=== PATIENT | female | born 1975 | race Caucasian/White ===

== ENCOUNTER 2017-09-07 02:02 | Emergency (ER) | payer OTHER ==
[~2017-09-07] VITALS: Ht 157.5 cm; Wt 68.0 kg
[~2017-09-07 02:02] MED LIST: ABAC300; ACET325 PO; ALBU90OI INH; ALBU90OI6 INH; ALBU90OI61 INH; ALPR.25 PO; ASPI81CH PO; ATOR80 PO; AZIT250 PO; Albuterol17 G1 INH; BENADRYL 50 MG; BENTYL10 MG PO; BUSP10 PO; BUSP5 PO; CEPH500 PO; CIPDEXSU OT; CLIN150 PO; CLIN300; CLIN300 PO; CLOT1TC TOP; CODACE30 PO; CRANBERRY PILLS; CYCL10 PO; Cleocin HCl150 MG PO; DEXT40GEL PO; DIAZ5 PO; DIPH50 PO; ERGO400 PO; Erythromycin500 M1 PO; FISH1000 PO; FLUSAL1005 INH; Flomax0.4 MG PO; HYDACE10B PO; HYDACE5 PO; HYDCHL12.5 PO; HYDPAM25; HYDPAM25 PO; HYDR1TAB94 PO; Hair, Skin & N1 EACH PO; Hydrochloroth12.5 MG PO; IBUP800 PO; ISODIN10 PO; Lisinopril2.5 MG; META800 PO; METO10 PO; METO25 PO; METO25ER PO; METR500 PO; MOTION RELIEF25 MG PO; Monodox100 MG PO; NAPR500ERA PO; NAPR550 PO; NAPROXEN; NICO14TP TOP; Nitroglycerin0.4 MG SL; Norco 5-325 Ta1 EACH PO; ONDA4ODT MM; OXYACE5T; OXYACE5T PO; PANT20 PO; PANT40 PO; PARO10; PHENA200 PO; POTA10T PO; POTCHL10ER; POTCHL10ER PO; PRED20 PO; PRODEXEL PO; PROM12.5S PR; PROM25 PO; Percocet 10-321 EACH PO; Percocet 5-3251 EACH PO; Prednisone20 MG PO; RXCLIN PO; RXHYD5325 PO; RXNAPNA550 PO; RXTRAM50 PO; SULTRIDS PO; TICA90TA; TRAM50 PO; Ultram50 MG PO; VARE1 PO; Ventolin Soln3 ML INH; Ventolin/Prove6.7 GM INH; Zofran Odt8 MG SL; Zofran8 MG PO
[2017-09-07 02:56] LABS: BASOPHILS ABSOLUTE AUTO 0.05 K/mm3 (0.00-0.23); BASOPHILS PERCENT AUTO 1 % (0-2); EOSINOPHILS ABSOLUTE AUTO 0.27 K/mm3 (0.00-0.68); EOSINOPHILS PERCENT AUTO 3 % (0-6); Hematocrit 32.1 % (33.0-51.0); Hemoglobin 10.3 g/dL (11.5-16.0); IMMATURE GRAN ABSOLUTE AUTO 0.05 K/mm3 (0.00-0.10); IMMATURE GRAN PERCENT AUTO 1 % (0-1); LYMPHOCYTES PERCENT AUTO 23 % (21-46); MONOCYTES ABSOLUTE AUTO 0.64 K/mm3 (0.16-1.47); MONOCYTES PERCENT AUTO 6 % (4-13); Mean Corpuscular HGB 26.2 pg (26.0-34.0); Mean Corpuscular HGB Conc 32.1 g/dL (31.5-36.5); Mean Corpuscular Volume 82 fL (80-100); Mean Platelet Volume 10.3 fL (9.1-12.4); NEUTROPHILS ABSOLUTE AUTO 6.78 K/mm3 (1.96-9.15); NEUTROPHILS PERCENT AUTO 67 % (41-73); Platelet Count 316 K/mm3 (150-400); RDW Standard Deviation 44.5 fL (35.1-46.3); Red Blood Cell Count 3.93 M/mm3 (3.80-5.20); White Blood Cell Count 10.09 K/mm3 (4.00-11.30)
[2017-09-07 03:19] LABS: Alanine Aminotransfer (ALT/SGP 23 U/L (12-78); Albumin, Blood 3.2 g/dL (3.4-5.0); Albumin/Globulin Ratio 0.9 (0.8-1.8); Alk Phos 106 U/L (50-136); Anion Gap 8 mmol/L (6-16); Aspartate Aminotrans (AST/SGOT 21 U/L (12-37); Bilirubin, Total 0.3 mg/dL (0.1-1.0); Blood Urea Nitrogen 19 mg/dL (8-24); CO2, Blood 26 mmol/L (21-32); Chloride, Blood 106 mmol/L (98-108); Creatinine, Blood 0.63 mg/dL (0.40-1.00); Globulin, Blood 3.5 g/dL (2.2-4.0); Glomerular Filtration Rate >60 (60-); Glucose, Blood 121 mg/dL (70-99); Potassium, Blood 3.2 mmol/L (3.5-5.5); Sodium, Blood 140 mmol/L (136-145); Total Protein, Blood 6.7 g/dL (6.4-8.2); Troponin I <0.015 ng/mL (0.000-0.040)
== END 2017-09-07 06:00 | disposition home or self-care (01) ==
LOC: ER 02:02
PROVIDERS: Emergency Medicine
DX: R07.9 Chest pain, unspecified (principal); D64.9 Anemia, unspecified; J45.909 Unspecified asthma, uncomplicated; F41.9 Anxiety disorder, unspecified; I25.2 Old myocardial infarction; F17.210 Nicotine dependence, cigarettes, uncomplicated; Z88.0 Allergy status to penicillin; Z88.1 Allergy status to other antibiotic agents; Z91.018 Allergy to other foods; Z91.012 Allergy to eggs; Z91.038 Other insect allergy status; Z88.5 Allergy status to narcotic agent; Z91.013 Allergy to seafood; Z79.899 Other long term (current) drug therapy; Z79.82 Long term (current) use of aspirin; Z79.51 Long term (current) use of inhaled steroids
CPT/HCPCS: 36415; 71046; 80053; 83880; 84484; 85025; 93005; 93010; 99285-25

== ENCOUNTER 2017-12-21 15:04 | Emergency (ER) | payer OTHER ==
[~2017-12-21] VITALS: Ht 165.1 cm; Wt 95.2 kg
[2017-12-21] MEDS ORDERED: Keflex500 MG PO (15:42)
== END 2017-12-21 15:45 | disposition home or self-care (01) ==
LOC: ER 15:04
DX: L02.214 Cutaneous abscess of groin (principal); J45.909 Unspecified asthma, uncomplicated; I10 Essential (primary) hypertension; F17.200 Nicotine dependence, unspecified, uncomplicated; Z88.0 Allergy status to penicillin; Z91.018 Allergy to other foods; Z91.012 Allergy to eggs; Z91.030 Bee allergy status; Z88.5 Allergy status to narcotic agent; Z91.010 Allergy to peanuts; Z91.013 Allergy to seafood; Z79.899 Other long term (current) drug therapy; Z79.82 Long term (current) use of aspirin; Z79.51 Long term (current) use of inhaled steroids
CPT/HCPCS: 99282

== ENCOUNTER 2018-02-07 21:51 | Emergency (ER) | payer OTHER ==
[~2018-02-07] VITALS: Ht 165.1 cm; Wt 96.6 kg
[~2018-02-07 21:51] MED LIST changes: +Keflex500 MG PO
[2018-02-07 22:32] LABS: BASOPHILS ABSOLUTE AUTO 0.05 K/mm3 (0.00-0.23); BASOPHILS PERCENT AUTO 1 % (0-2); EOSINOPHILS ABSOLUTE AUTO 0.15 K/mm3 (0.00-0.68); EOSINOPHILS PERCENT AUTO 1 % (0-6); Hematocrit 31.8 % (33.0-51.0); Hemoglobin 9.8 g/dL (11.5-16.0); IMMATURE GRAN ABSOLUTE AUTO 0.06 K/mm3 (0.00-0.10); IMMATURE GRAN PERCENT AUTO 1 % (0-1); LYMPHOCYTES ABSOLUTE AUTO 1.58 K/mm3 (0.84-5.20); LYMPHOCYTES PERCENT AUTO 15 % (21-46); MONOCYTES ABSOLUTE AUTO 0.59 K/mm3 (0.16-1.47); MONOCYTES PERCENT AUTO 6 % (4-13); Mean Corpuscular HGB 26.2 pg (26.0-34.0); Mean Corpuscular HGB Conc 30.8 g/dL (31.5-36.5); Mean Corpuscular Volume 85 fL (80-100); Mean Platelet Volume 10.5 fL (9.1-12.4); NEUTROPHILS ABSOLUTE AUTO 8.16 K/mm3 (1.96-9.15); NEUTROPHILS PERCENT AUTO 77 % (41-73); Platelet Count 312 K/mm3 (150-400); RDW Coefficient Variation 15.3 % (11.7-14.2); RDW Standard Deviation 46.9 fL (35.1-46.3); Red Blood Cell Count 3.74 M/mm3 (3.80-5.20); White Blood Cell Count 10.59 K/mm3 (4.00-11.30)
[2018-02-07 22:49] LABS: Troponin I <0.015 ng/mL (0.000-0.040)
[2018-02-07 22:51] LABS: Alanine Aminotransfer (ALT/SGP 14 U/L (12-78); Albumin, Blood 2.1 g/dL (3.4-5.0); Albumin/Globulin Ratio 0.5 (0.8-1.8); Alk Phos 125 U/L (50-136); Anion Gap 10 mmol/L (6-16); Aspartate Aminotrans (AST/SGOT 14 U/L (12-37); Bilirubin, Total <0.1 mg/dL (0.1-1.0); Blood Urea Nitrogen 11 mg/dL (8-24); Bun/Creatinine Ratio 18.6 (12.0-20.0); CO2, Blood 22 mmol/L (21-32); Calcium, Blood 8.2 mg/dL (8.5-10.1); Chloride, Blood 109 mmol/L (98-108); Creatinine, Blood 0.59 mg/dL (0.40-1.00); Globulin, Blood 4.3 g/dL (2.2-4.0); Glomerular Filtration Rate >60 (60-); Glucose, Blood 132 mg/dL (70-99); Potassium, Blood 4.2 mmol/L (3.5-5.5); Sodium, Blood 141 mmol/L (136-145); Total Protein, Blood 6.4 g/dL (6.4-8.2)
[2018-02-07 22:53] LABS: Source, Urine Clean Catch
[2018-02-07 22:55] LABS: Bilirubin, Urine Neg (Neg); Blood, Urine Neg (Neg); Glucose Qualitative, Urine Neg (Neg); Ketones, Urine Neg (Neg); Leukocyte Esterase, Urine Neg (Neg); Nitrite, Urine Neg (Neg); Protein, Urine 1+ (Neg); Specific Gravity, Urine 1.015 (1.003-1.022); Urobilinogen, Urine 1+ (Normal)
[2018-02-07 23:16] LABS: Color, Urine Yellow (P-Yellow)
[2018-02-07 23:17] LABS: Appearance, Urine Hazy (Clear); Bacteria Many /hpf; Red Blood Cells, Urine 0-2 /hpf (0-2); Squamous Epithelial Cells Many /hpf (Few)
[2018-02-07 23:55] LABS: Source, Urine Clean Catch
[2018-02-07 23:57] LABS: Bilirubin, Urine Neg (Neg); Blood, Urine Neg (Neg); Glucose Qualitative, Urine Neg (Neg); Ketones, Urine Neg (Neg); Leukocyte Esterase, Urine Neg (Neg); Nitrite, Urine Neg (Neg); Protein, Urine Neg (Neg); Urobilinogen, Urine 1+ (Normal)
[2018-02-08 00:06] LABS: Appearance, Urine Clear (Clear); Color, Urine Yellow (P-Yellow)
== END 2018-02-08 00:49 | disposition home or self-care (01) ==
LOC: ER 21:51
PROVIDERS: Emergency Medicine
DX: O9A.212 Injury, poisoning and certain other consequences of external causes complicating pregnancy, second trimester (principal); S00.83XA Contusion of other part of head, initial encounter; O99.89 Other specified diseases and conditions complicating pregnancy, childbirth and the puerperium; R07.9 Chest pain, unspecified; O09.512 Supervision of elderly primigravida, second trimester; O99.332 Smoking (tobacco) complicating pregnancy, second trimester; F17.210 Nicotine dependence, cigarettes, uncomplicated; W19.XXXA Unspecified fall, initial encounter
CPT/HCPCS: 36415; 80053; 81001; 81003; 83690; 84484; 85025; 87086; 93005; 93010; 96360; 96361; 99284-25; J7120; P9612

== ENCOUNTER → 2018-03-23 | Outpatient (CLI) | payer OTHER | END | disposition home or self-care (01) | LOC: LAB SHORT 14:24 → LAB 14:24 | PROVIDERS: Obstetrics & Gynecology | DX: O16.9 Unspecified maternal hypertension, unspecified trimester (principal) | CPT/HCPCS: 81050; 84156 ==

== ENCOUNTER 2018-04-27 15:37 | Inpatient (IN) | payer OTHER ==
[~2018-04-27] VITALS: Ht 165.1 cm; Wt 0.1 kg
[2018-04-27 16:40] LABS: Alanine Aminotransfer (ALT/SGP 16 U/L (12-78); Albumin/Globulin Ratio 0.5 (0.8-1.8); Alk Phos 174 U/L (50-136); Anion Gap 9 mmol/L (6-16); Aspartate Aminotrans (AST/SGOT 14 U/L (12-37); Bilirubin, Total 0.2 mg/dL (0.1-1.0); Blood Urea Nitrogen 12 mg/dL (8-24); Bun/Creatinine Ratio 23.5 (12.0-20.0); CO2, Blood 22 mmol/L (21-32); Calcium, Blood 8.3 mg/dL (8.5-10.1); Chloride, Blood 104 mmol/L (98-108); Creatinine, Blood 0.51 mg/dL (0.40-1.00); Glomerular Filtration Rate >60 (60-); Glucose, Blood 95 mg/dL (70-99); Sodium, Blood 135 mmol/L (136-145); Uric Acid, Blood 5.7 mg/dL (2.6-6.0)
[2018-04-27 17:10] LABS: BASOPHILS ABSOLUTE AUTO 0.04 K/mm3 (0.00-0.23); BASOPHILS PERCENT AUTO 0 % (0-2); EOSINOPHILS ABSOLUTE AUTO 0.17 K/mm3 (0.00-0.68); EOSINOPHILS PERCENT AUTO 1 % (0-6); Hematocrit 36.5 % (33.0-51.0); Hemoglobin 12.2 g/dL (11.5-16.0); IMMATURE GRAN ABSOLUTE AUTO 0.08 K/mm3 (0.00-0.10); IMMATURE GRAN PERCENT AUTO 1 % (0-1); LYMPHOCYTES ABSOLUTE AUTO 2.43 K/mm3 (0.84-5.20); LYMPHOCYTES PERCENT AUTO 21 % (21-46); MONOCYTES ABSOLUTE AUTO 0.66 K/mm3 (0.16-1.47); MONOCYTES PERCENT AUTO 6 % (4-13); Mean Corpuscular HGB 29.5 pg (26.0-34.0); Mean Corpuscular HGB Conc 33.4 g/dL (31.5-36.5); Mean Corpuscular Volume 88 fL (80-100); Mean Platelet Volume 11.7 fL (9.1-12.4); NEUTROPHILS ABSOLUTE AUTO 8.49 K/mm3 (1.96-9.15); NEUTROPHILS PERCENT AUTO 72 % (41-73); Platelet Count 219 K/mm3 (150-400); RDW Coefficient Variation 17.5 % (11.7-14.2); RDW Standard Deviation 56.8 fL (35.1-46.3); Red Blood Cell Count 4.14 M/mm3 (3.80-5.20); White Blood Cell Count 11.87 K/mm3 (4.00-11.30)
[2018-04-27 17:34] LABS: Creatinine, Urine Random 91.1 mg/dL (27.00-270.00); Protein, Urine Random 104.3 mg/dL (0.0-11.9); Protein/Creat Ratio, Ur Random 1.1
[2018-04-27] MEDS ORDERED: EXPECTA PRENAT1 EACH (17:36)
[2018-04-27] MEDS ORDERED: IRON150C (17:37)
[2018-04-27] MEDS ORDERED: ERGO400 (17:38)
[2018-04-27] MEDS ORDERED: METO50ER (17:38)
--- NOTE | 2018-04-28 02:12 | NUR ---
DURING 0200 VITAL SIGNS, PT WAS ASLEEP AND SNORING IN BED. WHEN RN WALKED INTO [facility], PT AWOKE, AND STATED SHE STILL HAS FRONTAL HEADACHE, RATES IT 4/10. DENIES ANY VISUAL DISTURBANCES/CHANGES OR TINGLING/NUMBNESS.
--- NOTE | 2018-04-28 04:05 | NUR ---
PT IN ROOM SLEEPING/SNORING, RR 14. RN TO DO NST AND PERFORM PIH ASSESSMENT WHEN LAB ROUNDS ON PT.
[2018-04-28 05:57] LABS: BASOPHILS ABSOLUTE AUTO 0.04 K/mm3 (0.00-0.23); BASOPHILS PERCENT AUTO 0 % (0-2); EOSINOPHILS ABSOLUTE AUTO 0.23 K/mm3 (0.00-0.68); EOSINOPHILS PERCENT AUTO 3 % (0-6); Hematocrit 36.2 % (33.0-51.0); Hemoglobin 11.7 g/dL (11.5-16.0); IMMATURE GRAN ABSOLUTE AUTO 0.05 K/mm3 (0.00-0.10); IMMATURE GRAN PERCENT AUTO 1 % (0-1); LYMPHOCYTES ABSOLUTE AUTO 2.38 K/mm3 (0.84-5.20); LYMPHOCYTES PERCENT AUTO 27 % (21-46); MONOCYTES PERCENT AUTO 6 % (4-13); Mean Corpuscular HGB 28.8 pg (26.0-34.0); Mean Corpuscular HGB Conc 32.3 g/dL (31.5-36.5); Mean Corpuscular Volume 89 fL (80-100); Mean Platelet Volume 11.7 fL (9.1-12.4); NEUTROPHILS ABSOLUTE AUTO 5.76 K/mm3 (1.96-9.15); NEUTROPHILS PERCENT AUTO 64 % (41-73); NRBC ABSOLUTE 0.02 K/mm3 (0.00-0.02); NRBC Auto 0.2 /100 WBC (0.0-0.2); Platelet Count 202 K/mm3 (150-400); RDW Coefficient Variation 17.3 % (11.7-14.2); RDW Standard Deviation 56.6 fL (35.1-46.3); Red Blood Cell Count 4.06 M/mm3 (3.80-5.20); White Blood Cell Count 8.96 K/mm3 (4.00-11.30)
--- NOTE | 2018-04-28 06:12 | NUR ---
PT REPORTS IV IS BURNING, TWO UNSUCCESFUL ATTMEPTS AT STARTING A NEW IV. WILL REASSESS AFTER PT HAS CHANCE TO RECOVER FROM BEING POKED. NEW IV BAG OF LR HUNG
[2018-04-28 06:19] LABS: Alanine Aminotransfer (ALT/SGP 13 U/L (12-78); Albumin, Blood 1.9 g/dL (3.4-5.0); Albumin/Globulin Ratio 0.5 (0.8-1.8); Alk Phos 167 U/L (50-136); Anion Gap 8 mmol/L (6-16); Aspartate Aminotrans (AST/SGOT 10 U/L (12-37); Bilirubin, Total 0.2 mg/dL (0.1-1.0); Blood Urea Nitrogen 14 mg/dL (8-24); Bun/Creatinine Ratio 26.2 (12.0-20.0); CO2, Blood 22 mmol/L (21-32); Calcium, Blood 8.4 mg/dL (8.5-10.1); Chloride, Blood 108 mmol/L (98-108); Creatinine, Blood 0.53 mg/dL (0.40-1.00); Globulin, Blood 3.9 g/dL (2.2-4.0); Glomerular Filtration Rate >60 (60-); Glucose, Blood 95 mg/dL (70-99); Potassium, Blood 4.2 mmol/L (3.5-5.5); Sodium, Blood 138 mmol/L (136-145); Total Protein, Blood 5.8 g/dL (6.4-8.2); Uric Acid, Blood 5.4 mg/dL (2.6-6.0)
--- NOTE | 2018-04-28 17:14 | NUR ---
Procedure nurse at bedside for possible power glide placement.
[2018-04-28 18:47] LABS: Creatinine Urine 48.1 mg/dL (27.00-270.00)
[2018-04-29 06:16] LABS: Hematocrit 39.2 % (33.0-51.0); Hemoglobin 13.1 g/dL (11.5-16.0); Mean Corpuscular HGB 28.7 pg (26.0-34.0); Mean Corpuscular HGB Conc 33.4 g/dL (31.5-36.5); Mean Platelet Volume 11.9 fL (9.1-12.4); Platelet Count 191 K/mm3 (150-400); RDW Coefficient Variation 17.2 % (11.7-14.2); RDW Standard Deviation 53.9 fL (35.1-46.3); Red Blood Cell Count 4.56 M/mm3 (3.80-5.20); White Blood Cell Count 15.05 K/mm3 (4.00-11.30)
[2018-04-29 06:17] LABS: Mean Corpuscular Volume 86 fL (80-100)
[2018-04-29 06:37] LABS: Alanine Aminotransfer (ALT/SGP 17 U/L (12-78); Albumin, Blood 2.2 g/dL (3.4-5.0); Albumin/Globulin Ratio 0.5 (0.8-1.8); Alk Phos 192 U/L (50-136); Anion Gap 10 mmol/L (6-16); Aspartate Aminotrans (AST/SGOT 18 U/L (12-37); Bilirubin, Total 0.2 mg/dL (0.1-1.0); Blood Urea Nitrogen 12 mg/dL (8-24); Bun/Creatinine Ratio 21.2 (12.0-20.0); CO2, Blood 23 mmol/L (21-32); Calcium, Blood 7.9 mg/dL (8.5-10.1); Chloride, Blood 103 mmol/L (98-108); Creatinine, Blood 0.57 mg/dL (0.40-1.00); Globulin, Blood 4.2 g/dL (2.2-4.0); Glomerular Filtration Rate >60 (60-); Glucose, Blood 110 mg/dL (70-99); Magnesium, Blood 4.6 mg/dL (1.6-2.4); Potassium, Blood 4.1 mmol/L (3.5-5.5); Sodium, Blood 136 mmol/L (136-145); Total Protein, Blood 6.4 g/dL (6.4-8.2)
--- NOTE | 2018-04-29 16:55 | NUR ---
Pt ambulated to nursery to see nb.
--- NOTE | 2018-04-29 17:30 | NUR ---
MD updated about bp, meds, pt status. No new orders received.
[2018-04-30 05:54] LABS: Hematocrit 34.6 % (33.0-51.0); Hemoglobin 11.2 g/dL (11.5-16.0); Mean Corpuscular HGB 29.4 pg (26.0-34.0); Mean Corpuscular HGB Conc 32.4 g/dL (31.5-36.5); Mean Platelet Volume 11.9 fL (9.1-12.4); Platelet Count 208 K/mm3 (150-400); RDW Coefficient Variation 17.7 % (11.7-14.2); RDW Standard Deviation 59.3 fL (35.1-46.3); Red Blood Cell Count 3.81 M/mm3 (3.80-5.20); White Blood Cell Count 13.01 K/mm3 (4.00-11.30)
[2018-04-30 05:55] LABS: Mean Corpuscular Volume 91 fL (80-100)
[2018-04-30 06:18] LABS: Alanine Aminotransfer (ALT/SGP 18 U/L (12-78); Albumin, Blood 1.9 g/dL (3.4-5.0); Albumin/Globulin Ratio 0.5 (0.8-1.8); Alk Phos 148 U/L (50-136); Anion Gap 10 mmol/L (6-16); Aspartate Aminotrans (AST/SGOT 19 U/L (12-37); Bilirubin, Total 0.2 mg/dL (0.1-1.0); Blood Urea Nitrogen 25 mg/dL (8-24); Bun/Creatinine Ratio 34.9 (12.0-20.0); CO2, Blood 22 mmol/L (21-32); Calcium, Blood 8.3 mg/dL (8.5-10.1); Chloride, Blood 109 mmol/L (98-108); Creatinine, Blood 0.72 mg/dL (0.40-1.00); Globulin, Blood 3.7 g/dL (2.2-4.0); Glomerular Filtration Rate >60 (60-); Glucose, Blood 152 mg/dL (70-99); Potassium, Blood 4.3 mmol/L (3.5-5.5); Sodium, Blood 141 mmol/L (136-145); Total Protein, Blood 5.6 g/dL (6.4-8.2)
--- NOTE | 2018-04-30 08:07 | NUR ---
PT VISITING NB IN NURSERY FOR ABOUT THE LAST HOUR THIS AM. WILL ASSESS PT AND DO VS WHEN PT RETURNS TO ROOM.
--- NOTE | 2018-04-30 09:01 | NUR ---
177/93 BP. PT WAS JUST UP TO NURSERY STANDING AND VISITING WITH NB. PT SITTING STRAIGHT UP AT THE BEDSIDE WHILE TALKING TO DR. REED IN ROOM. BP IS HIGH AT THIS TIME. AM MEDICATIONS GIVEN INCLUDING NIFEDAPINE AND METROPOLOL, WILL RE-EVALUATE BP AFTER TIME HAS BEEN GIVEN TO ALLOW MEDICATIONS TO WORK. IF BP REMAINS HIGH, WILL ADMINISTER PRN MEDICATIONS PER ORDER.
--- NOTE | 2018-04-30 09:45 | NUR ---
PT SLEEPING HEAVILIY. SNORING. RR EVEN/UNLABORED. WILL DO CBG AND BP WHEN PT AWAKE
--- NOTE | 2018-04-30 10:36 | NUR ---
PT CONTINUES TO SLEEP HEAVILY, SNORING. RR EVEN/UNLABORED. RN ATTEMPTED TO WAKE PT FOR CBG AND BP, PT CONTINUES TO SLEEP. WILL TRY AGAIN SOON.
--- NOTE | 2018-05-01 01:15 | NUR ---
RECHECKEDN PATIENT'S BP ABOUT A HALF HOUR AFTER ADMINISTERING IV HYDRALAZINE AND IT INCREASED TO 186/99 HOWEVER THE PATIENT HAD JUST RETURNED TO BED FROM RUSHING TO THE BATHROOM TO URINATE. INFORMED PATIENT THAT I WOULD GIVE HER 10 MINUTES TO RELAX AND WOULD RETURN TO RECHECK BP.
--- NOTE | 2018-05-01 01:38 | NUR ---
PATIENTS BP DID COME DOWN TO 158/85 AFTER ALLOWING HER TO RELAX. I WILL CONTINUE TO MONITOR IN 2 HOURS PER ORDERS.
--- NOTE | 2018-05-01 04:51 | NUR ---
PATIENT REQUESTED A SANDWICH, YOGURT AND CHOCOLATE MILK FOR A SNACK. I OBTAINED HER FASTING BLOOD SUGAR JUST PRIOR TO HER EATING THE FOOD, HOWEVER SHE DID DRINK A CARTON OF CHOCOLATE MILK ABOUT AN HOUR EARLIER.
[2018-05-01] MEDS ORDERED: IBUP800 PO (09:40)
--- NOTE | 2018-05-01 10:00 | NUR ---
PT CHANGED HER MIND REGARDING PATERNITY PAPERS AND REFUSED TO SIGN THEM OR HAVE S/O SIGN THEM.
--- NOTE | 2018-05-01 10:58 | NUR ---
POWERGLIDE REMOVED BY DESTINI. AT 1030. SITE WNL. PT DISCHARGED TO HOME. DISCHARGE INSTRUCTIONS GIVEN. NO QUESTIONS OR CONCERNS AT THIS TIME. IBUPROFEN PRESCRIPTION GIVEN TO PT.
== END 2018-05-01 10:50 | disposition home or self-care (01) | DRG 807 ==
LOC: BC 15:37 → OBS 15:37 → BC 17:31
PROVIDERS: ADMIT Obstetrics & Gynecology
PROC: 10E0XZZ Delivery of Products of Conception, External Approach (ICD-10-PCS; principal; 2018-04-29)
PROC: 10907ZC Drainage of Amniotic Fluid, Therapeutic from Products of Conception, Via Natural or Artificial Opening (ICD-10-PCS; 2018-04-29)
DX: O11.4 Pre-existing hypertension with pre-eclampsia, complicating childbirth (principal); Z37.0 Single live birth; Z3A.36 36 weeks gestation of pregnancy; Z88.0 Allergy status to penicillin; Z91.012 Allergy to eggs; Z91.010 Allergy to peanuts; Z91.013 Allergy to seafood; Z88.8 Allergy status to other drugs, medicaments and biological substances; Z91.018 Allergy to other foods
CPT/HCPCS: 36415; 36416; 51702; 59025; 80053; 81050; 82570; 82947; 83735; 84156; 84550; 85025; 85027; 87081; 87653; 93005; 93010; C9113; J0360; J0690; J1885; J2590; J3010; J3475; J7120

== ENCOUNTER 2018-10-29 09:19 | Observation (INO) | payer OTHER ==
[~2018-10-29] VITALS: Ht 165.1 cm; Wt 101.9 kg
[~2018-10-29 09:19] MED LIST changes: -ASPI81CH PO; +Aspirin EC81 MG PO; +EXPECTA PRENAT1 EACH; +FERSU300 PO; +METO50ER PO; +Vitamin D2000 UNIT PO
[2018-10-29] MEDS ORDERED: K-Dur10 MEQ PO (09:33)
[2018-10-29] MEDS ORDERED: NITR.4SL SL (09:34)
[2018-10-29] MEDS ORDERED: ATORVASTATIN CA80 MG PO (09:34)
[2018-10-29] MEDS ORDERED: HYDCHL25 PO (09:34)
[2018-10-29] MEDS ORDERED: METF500 PO (09:35)
[2018-10-29] MEDS ORDERED: CLOP75 PO (10:09)
[2018-10-29] MEDS ORDERED: Isosorbide Mono30 MG PO (10:10)
[2018-10-29 10:16] LABS: BASOPHILS ABSOLUTE AUTO 0.06 K/mm3 (0.00-0.23); BASOPHILS PERCENT AUTO 1 % (0-2); EOSINOPHILS ABSOLUTE AUTO 0.26 K/mm3 (0.00-0.68); EOSINOPHILS PERCENT AUTO 2 % (0-6); Hematocrit 42.1 % (33.0-51.0); Hemoglobin 14.1 g/dL (11.5-16.0); IMMATURE GRAN ABSOLUTE AUTO 0.05 K/mm3 (0.00-0.10); IMMATURE GRAN PERCENT AUTO 1 % (0-1); LYMPHOCYTES PERCENT AUTO 21 % (21-46); MONOCYTES ABSOLUTE AUTO 0.57 K/mm3 (0.16-1.47); MONOCYTES PERCENT AUTO 5 % (4-13); Mean Corpuscular HGB 30.7 pg (26.0-34.0); Mean Corpuscular HGB Conc 33.5 g/dL (31.5-36.5); Mean Corpuscular Volume 92 fL (80-100); Mean Platelet Volume 10.6 fL (9.1-12.4); NEUTROPHILS ABSOLUTE AUTO 7.83 K/mm3 (1.96-9.15); NEUTROPHILS PERCENT AUTO 71 % (41-73); Platelet Count 277 K/mm3 (150-400); RDW Coefficient Variation 13.8 % (11.7-14.2); RDW Standard Deviation 46.5 fL (35.1-46.3); White Blood Cell Count 11.07 K/mm3 (4.00-11.30)
[2018-10-29 10:37] LABS: Alanine Aminotransfer (ALT/SGP 28 U/L (12-78); Albumin, Blood 3.6 g/dL (3.4-5.0); Albumin/Globulin Ratio 0.9 (0.8-1.8); Alk Phos 142 U/L (50-136); Anion Gap 8 mmol/L (6-16); Aspartate Aminotrans (AST/SGOT 13 U/L (12-37); Bilirubin, Total 0.4 mg/dL (0.1-1.0); Blood Urea Nitrogen 11 mg/dL (8-24); Bun/Creatinine Ratio 15.9 (12.0-20.0); CO2, Blood 29 mmol/L (21-32); Calcium, Blood 9.1 mg/dL (8.5-10.1); Chloride, Blood 101 mmol/L (98-108); Creatinine, Blood 0.69 mg/dL (0.40-1.00); Globulin, Blood 3.8 g/dL (2.2-4.0); Glomerular Filtration Rate >60 (60-); Glucose, Blood 151 mg/dL (70-99); Potassium, Blood 3.8 mmol/L (3.5-5.5); Sodium, Blood 138 mmol/L (136-145); Total Protein, Blood 7.4 g/dL (6.4-8.2); Troponin I <0.015 ng/mL (0.000-0.040)
[2018-10-29] MEDS ORDERED: Ventolin/Prove6.7 GM INH (11:55)
[2018-10-29] MEDS ORDERED: PARO20 PO (11:56)
--- NOTE | 2018-10-29 18:13 | NUR ---
PT. SITTING IN BED DENIES PAIN, CP, N/V OR SOB. NO FURTHER CHEST PAIN SINCE ARRIVAL TO FLOOR. DR. CAO CONSULTED WILL BE IN TONIGHT OR IN THE MORNING.
--- NOTE | 2018-10-29 19:10 | NUR ---
DR. CAO CAME INTO SEE PT. AND HAD HER SIGN A CONSENT FORM FOR ANGIOGRAM IN MORNING AROUND 0800. NURSING EARLY CHILDHOOD SPECIALIST NOTIFIED. SAID IF PT. DEVELOPS CHEST PAIN, DIAPHORESE BEFORE AM COULD BE TAKEN FOR ANGIOGRAM THIS EVEING. STATED DEFINITE CHANGES ON EKG.
[2018-10-30 02:15] LABS: BASOPHILS ABSOLUTE AUTO 0.05 K/mm3 (0.00-0.23); BASOPHILS PERCENT AUTO 1 % (0-2); EOSINOPHILS ABSOLUTE AUTO 0.31 K/mm3 (0.00-0.68); EOSINOPHILS PERCENT AUTO 4 % (0-6); Hematocrit 38.6 % (33.0-51.0); IMMATURE GRAN ABSOLUTE AUTO 0.04 K/mm3 (0.00-0.10); IMMATURE GRAN PERCENT AUTO 1 % (0-1); LYMPHOCYTES ABSOLUTE AUTO 2.16 K/mm3 (0.84-5.20); LYMPHOCYTES PERCENT AUTO 25 % (21-46); MONOCYTES PERCENT AUTO 7 % (4-13); Mean Corpuscular HGB Conc 33.7 g/dL (31.5-36.5); Mean Corpuscular Volume 92 fL (80-100); Mean Platelet Volume 10.4 fL (9.1-12.4); NEUTROPHILS ABSOLUTE AUTO 5.56 K/mm3 (1.96-9.15); NEUTROPHILS PERCENT AUTO 64 % (41-73); Platelet Count 229 K/mm3 (150-400); RDW Standard Deviation 46.9 fL (35.1-46.3); Red Blood Cell Count 4.19 M/mm3 (3.80-5.20); White Blood Cell Count 8.72 K/mm3 (4.00-11.30)
[2018-10-30 02:34] LABS: Alanine Aminotransfer (ALT/SGP 26 U/L (12-78); Albumin, Blood 3.2 g/dL (3.4-5.0); Albumin/Globulin Ratio 0.9 (0.8-1.8); Alk Phos 122 U/L (50-136); Anion Gap 6 mmol/L (6-16); Aspartate Aminotrans (AST/SGOT 11 U/L (12-37); Bilirubin, Total 0.3 mg/dL (0.1-1.0); Blood Urea Nitrogen 15 mg/dL (8-24); Bun/Creatinine Ratio 19.7 (12.0-20.0); CHOL/HDL RATIO 5.9; CO2, Blood 30 mmol/L (21-32); Calcium, Blood 8.7 mg/dL (8.5-10.1); Chloride, Blood 104 mmol/L (98-108); Cholesterol 178 mg/dL (50-200); Creatinine, Blood 0.76 mg/dL (0.40-1.00); Globulin, Blood 3.4 g/dL (2.2-4.0); Glomerular Filtration Rate >60 (60-); Glucose, Blood 183 mg/dL (70-99); HDL Cholesterol 30 mg/dL (>39); LDL/HDL RATIO Unable to Calculate; Low Density Lipoprotein Chol Unable to Calculate mg/dL (0-110); Potassium, Blood 3.5 mmol/L (3.5-5.5); Sodium, Blood 140 mmol/L (136-145); Total Protein, Blood 6.6 g/dL (6.4-8.2); Triglycerides 677 mg/dL (30-160); Very Low Density Lipoprot Chol Unable to Calculate mg/dL (6-32)
--- NOTE | 2018-10-30 02:59 | NUR ---
SHIFT SUMMARY PT IS ALERT, ORIENTED, AND INDEPENDENT. NO COMPLAINTS OF CP, SOB, OR DIAPHORISIS. VSS. NO CALLS ON TELEMTRY WERE RECIEVED BY THIS RN. PT NPO AT MIDNIGHT FOR MORNING PROCEDURE. NO OTHER COMPLAINTS AT THIS TIME. WILL CONTINUE TO MONITOR.
--- NOTE | 2018-10-30 08:19 | NUR ---
0715 PT C/O CP RADIATING DOWN L ARM; 9/10 PAIN. VS OBTAINED,SEE CHART; 2L O2 PLACED WHILE DR CAO NOTIFIED BY [facility] RN. EKG STARTED AND NITRO GIVEN. 722 DR ACO TO TO ON PT. STAT EKG OBTAINED; PER DR CAO, NO NEW CHANGES FROM PREVIOUS EKG. C/P RESOLVED WITH NITRO X1. DR CAO NOTIFIED TRIAGE REGISTER NURSE TO TAKE PT EARLY FOR ANGIO. 0767 TRIAGE REGISTER NURSE HERE TO GET PT. FAMILY IN WHEN PT READY TO GO. PT TO GO TO PCU 13 WHEN FINISHED.
--- NOTE | 2018-10-30 09:30 | NUR ---
pt arrived to pcu 13 via gurney from [facility], she had an angio with tr band site, site is clear no bruising, swelling or oozing. she is awake a/ox3, vs htn, she has not had her am meds yet. denies any complaints of pain. no arteries were clear per report, no stents. there were some medications changes. call light in reach. will continue to monitor site and vs.
[2018-10-30] MEDS ORDERED: CARV3.125 PO (13:00)
--- NOTE | 2018-10-30 13:06 | NUR ---
Advance directive education/Spiritual Care visit conducted. I asked patient about the admit trigger requesting education. Patient confirmed her interest. I handed patient the advance directive booklet, discussed importance and process and went through the sections of the booklet. Patient voiced appreciation, confirmed comprehension and stated that she would complete forms in comfort of home. I also discussed patient's spiritual beliefs and provided prayer. Patient also asked if I could aquire a rosary for her. I went down to spiritual care office and retrived several rosaries so patient could choose one. Patient picked a rosary and expressed gratitude.
--- NOTE | 2018-10-30 17:54 | NUR ---
tr band has been removed, clear dressing placed, no sign of oozing. arm board replaced, instructions given for arm care and discharge instructions. she vergbalized understanding, iv removed intact, left via wheelchair with administrative support coordinator and family.
== END 2018-10-30 18:01 | disposition home or self-care (01) ==
LOC: ER 09:19 → MEDS 09:20 → PCU 10-30 09:13
PROVIDERS: Emergency Medicine; ADMIT Internal Medicine
DX: I21.4 Non-ST elevation (NSTEMI) myocardial infarction (principal); I25.110 Atherosclerotic heart disease of native coronary artery with unstable angina pectoris; I10 Essential (primary) hypertension; E11.9 Type 2 diabetes mellitus without complications; J45.909 Unspecified asthma, uncomplicated; E78.5 Hyperlipidemia, unspecified; G47.33 Obstructive sleep apnea (adult) (pediatric); F17.200 Nicotine dependence, unspecified, uncomplicated; E66.9 Obesity, unspecified; Z95.5 Presence of coronary angioplasty implant and graft; Z88.1 Allergy status to other antibiotic agents; Z91.038 Other insect allergy status; Z88.5 Allergy status to narcotic agent; Z91.010 Allergy to peanuts; Z88.0 Allergy status to penicillin; Z91.013 Allergy to seafood; Z79.899 Other long term (current) drug therapy; Z79.51 Long term (current) use of inhaled steroids; Z79.82 Long term (current) use of aspirin; Z79.01 Long term (current) use of anticoagulants; Z79.84 Long term (current) use of oral hypoglycemic drugs
CPT/HCPCS: 36415; 71046; 80053; 80061; 82947; 83735; 84484; 85025; 93005; 93010; 93458; 94640; 94762; 99152; 99153; 99285-25; A9270; C1769; C1887; C1894; C9113; G0378; J1644; J1650; J2250; J3010; J7030; Q9967

== ENCOUNTER 2019-02-25 15:06 | Emergency (ER) | payer OTHER ==
[~2019-02-25] VITALS: Ht 165.1 cm; Wt 102.5 kg
[~2019-02-25 15:06] MED LIST changes: +ATORVASTATIN CA80 MG PO; +CARV3.125 PO; +CLOP75 PO; +HYDCHL25 PO; +Isosorbide Mono30 MG PO; +K-Dur10 MEQ PO; +METF500 PO; +NITR.4SL SL; +PARO20 PO
[2019-02-25] MEDS ORDERED: LIDO700A20 TOP (17:03)
[2019-02-25] MEDS ORDERED: Robaxin-750750 MG PO (17:03)
[2019-02-25] MEDS ORDERED: HYDR1TAB94 PO (17:03)
== END 2019-02-25 17:30 | disposition home or self-care (01) ==
LOC: ER 15:06
DX: R07.81 Pleurodynia (principal); J45.909 Unspecified asthma, uncomplicated; F41.9 Anxiety disorder, unspecified; M54.9 Dorsalgia, unspecified; G89.29 Other chronic pain; F17.210 Nicotine dependence, cigarettes, uncomplicated; Z88.0 Allergy status to penicillin; Z88.1 Allergy status to other antibiotic agents; Z91.018 Allergy to other foods; Z91.030 Bee allergy status; Z91.010 Allergy to peanuts; Z79.82 Long term (current) use of aspirin; Z79.899 Other long term (current) drug therapy; W19.XXXA Unspecified fall, initial encounter
CPT/HCPCS: 71101; 99283-25

== ENCOUNTER 2019-10-15 19:09 | Emergency (ER) | payer OTHER ==
[~2019-10-15] VITALS: Ht 165.1 cm; Wt 101.6 kg
[~2019-10-15 19:09] MED LIST changes: +LIDO700A20 TOP; +Robaxin-750750 MG PO
[2019-10-15] MEDS ORDERED: HYDR1TAB94 PO (21:53)
[2019-10-15] MEDS ORDERED: KEFLEX500 MG PO (21:53)
== END 2019-10-15 22:10 | disposition home or self-care (01) ==
LOC: ER 19:09
DX: L02.31 Cutaneous abscess of buttock (principal); L03.317 Cellulitis of buttock; I25.10 Atherosclerotic heart disease of native coronary artery without angina pectoris; J45.909 Unspecified asthma, uncomplicated; F41.9 Anxiety disorder, unspecified; I25.2 Old myocardial infarction; F17.210 Nicotine dependence, cigarettes, uncomplicated; Z88.0 Allergy status to penicillin; Z91.030 Bee allergy status; Z91.018 Allergy to other foods; Z88.5 Allergy status to narcotic agent; Z91.010 Allergy to peanuts; Z79.82 Long term (current) use of aspirin; Z79.899 Other long term (current) drug therapy; Z79.02 Long term (current) use of antithrombotics/antiplatelets; Z95.5 Presence of coronary angioplasty implant and graft
CPT/HCPCS: 10060; 87070; 87075; 87076; 87147; 87185; 87205; 99282-25

== ENCOUNTER → 2022-05-02 | Outpatient (CLI) | payer OTHER ==
[~2022-05-02] MED LIST changes: +KEFLEX500 MG PO
[2022-05-03 14:11] LABS: HPV 16 Negative (Negative); HPV 18 Negative (Negative); HPV OTHER HR TYPES Negative (Negative)
== END | disposition home or self-care (01) ==
LOC: LAB SHORT 15:30 → LAB 15:30
PROVIDERS: Nurse Practitioner Family
DX: Z01.419 Encounter for gynecological examination (general) (routine) without abnormal findings (principal)
CPT/HCPCS: 87624; 88175

== ENCOUNTER → 2022-08-27 | Outpatient (CLI) | payer OTHER ==
[~2022-08-27] MED LIST changes: +BUPR150ER; +BYDUREON B2 MG/0.81; +Crestor40 MG; +FURO40; +LOSA50; +POTA10T; +STEGLATRO15 MG
== END ==
LOC: LAB SHORT 08:09 → PLD 08:09
DX: D22.39 Melanocytic nevi of other parts of face (principal)
CPT/HCPCS: 88305

== ENCOUNTER 2023-03-21 21:11 | Inpatient (IN) | payer OTHER ==
[~2023-03-21] VITALS: Ht 165.1 cm; Wt 87.2 kg
[~2023-03-21 21:11] MED LIST changes: -BYDUREON B2 MG/0.81; +BYDUREON B2 MG/0.81 SC; -Crestor40 MG; +Crestor40 MG PO; -FURO40; +FURO40 PO; -LOSA50; +LOSA50 PO; -POTA10T; -STEGLATRO15 MG; +STEGLATRO15 MG PO
[2023-03-21 21:41] LABS: BASOPHILS ABSOLUTE AUTO 0.06 K/mm3 (0.00-0.23); BASOPHILS PERCENT AUTO 1 % (0-2); EOSINOPHILS ABSOLUTE AUTO 0.21 K/mm3 (0.00-0.68); EOSINOPHILS PERCENT AUTO 2 % (0-6); Hematocrit 41.5 % (33.0-51.0); Hemoglobin 14.1 g/dL (11.5-16.0); IMMATURE GRAN ABSOLUTE AUTO 0.04 K/mm3 (0.00-0.10); IMMATURE GRAN PERCENT AUTO 0 % (0-1); LYMPHOCYTES ABSOLUTE AUTO 2.94 K/mm3 (0.84-5.20); LYMPHOCYTES PERCENT AUTO 24 % (21-46); MONOCYTES ABSOLUTE AUTO 0.59 K/mm3 (0.16-1.47); MONOCYTES PERCENT AUTO 5 % (4-13); Mean Corpuscular HGB 28.8 pg (26.0-34.0); Mean Corpuscular Volume 85 fL (80-100); Mean Platelet Volume 9.8 fL (9.1-12.4); NEUTROPHILS ABSOLUTE AUTO 8.21 K/mm3 (1.96-9.15); NEUTROPHILS PERCENT AUTO 68 % (41-73); Platelet Count 302 K/mm3 (150-400); RDW Coefficient Variation 13.9 % (11.7-14.2); RDW Standard Deviation 42.6 fL (35.1-46.3); Red Blood Cell Count 4.89 M/mm3 (3.80-5.20); White Blood Cell Count 12.05 K/mm3 (4.00-11.30)
[2023-03-21 21:58] LABS: Albumin, Blood 3.7 g/dL (3.4-5.0); Bilirubin, Total 0.7 mg/dL (0.1-1.0); Bun/Creatinine Ratio 9.5 (12.0-20.0); Calcium, Blood 9.6 mg/dL (8.5-10.1); Creatinine, Blood 0.84 mg/dL (0.40-1.00); Globulin, Blood 3.6 g/dL (2.2-4.0); Potassium, Blood 3.5 mmol/L (3.5-5.5); Total Protein, Blood 7.3 g/dL (6.4-8.2)
[2023-03-21 22:50] LABS: Anti-Xa UFH, PHA Monitoring <0.10 IU/mL; International Normalized Ratio 0.92; Prothrombin Time Results 9.7 Sec (9.7-11.5)
[2023-03-22] VITALS (43 sets, daily range): BP systolic 93–142; BP diastolic 57–101
--- NOTE | 2023-03-22 02:16 | NUR ---
ASSUMPTION OF CARE PT TO ICU VIA HOSPITAL BED AT 0116, PT MOVED SELF OVER TO ICU BED. ALERT AND ORIENTED X4. PT ANSWERS QUESTIONS APPROPRIATELY AND IS ABLE TO MAKE NEEDS KNOWN. HR 70-80'S, MAP >65. PT RATES CP AT 1/10, NITROGLYCERIN INFUSING AT 10MCG/MIN. PT ON RA, OXYGEN SATURATION >90%, PT DENIES SOB. ABDOMEN SOFT NONTENDER, BOWEL TONES ACTIVE IN ALL FOUR QUADRANTS. PIV TO LEFT WRIST, RIGHT WRIST AND LAC. HEPARIN INFUSING AT 15UNITS/KG/HR. BED IN LOWEST POSITION, CALL LIGHT WITHIN REACH. CARE CONTINUES.
--- NOTE | 2023-03-22 03:16 | NUR ---
CHEST PAIN PT C/O CHEST PRESSURE AND PAIN TO LEFT ARM AND MID CHEST 07/27. NTG GTT INCREASED TO [address] MENSAH
--- NOTE | 2023-03-22 03:24 | NUR ---
PT REFUSING MORPHINE DUE TO ALLERGY (HALLUCINATIONS).
--- NOTE | 2023-03-22 06:19 | NUR ---
SHIFT SUMMARY PT RESTING IN BED, SLEEPING BUT AROUSABLE. PT ANSWERS QUESTIONS APPROPRIATELY AND FOLLOWS COMMANDS, ABLE TO MAKE NEEDS KNOWN. PT MOVES ALL EXTREMITIES EQUALLY BILATERALLY. HR 70'S SINUS, MAP >65. PT COMPLAINING OF CHEST PAIN THROUGHOUT SHIFT WITH NUMBNESS TO LEFT ARM, TITRATED NITROGLYCERIN PER EMAR FOR PAIN, SEE FLOWSHEET FOR TITATIONS. NITROGLYCERIN NOW AT 20MCG/MIN, PT STATES CHEST PAIN 0/10 AT THIS TIME. PT ON RA, OXYGEN SATURATION >90%, DENIES SOB. ABDOMEN SOFT NONTENDER, BOWEL TONES ACTIVE IN ALL FOUR QUADRANTS. PT USES BEDSIDE COMMODE TO VOID. PIV TO RIGHT WRIST, LEFT WRIST AND LEFT AC. HEPARIN INFUSING AT 15UNITS/KG/HR. BED IN LOWEST POSITION, CALL LIGHT WIHTIN REACH, CARE CONTINUES.
--- NOTE | 2023-03-22 10:12 | NUR ---
SHIFT ASSESSMENT ASSUMED CARE OF PT @ 0700, BEDSIDE REPORT RECEIVED FROM NOC NURSE. PT A&OX4, FOLLOWING COMMANDS, PERALES. INITIALLY ON NITRO GTT, TITRATED OFF THIS AM. PT DENIES CP, C/O HEADACHE. HEPARIN GTT INFUSING @ PRESCRIBED RATE. PT NPO OTHER THAN WATER. VSS. NUCLEAR STRESS TEST SCHEDULED FOR 1100, THIS NURSE WILL GO WITH PT.
--- NOTE | 2023-03-22 14:22 | NUR ---
TRANSFER UPDATE REPORT RECIEVED FROM GLORIA RN AT 1330. THIS RN ASSUMED CARE. PT A/OX4. PT ON RA WITH NO REPORT OF SOB/DYSPNEA. PT CURRENTLY NOT FEELING CHEST PAIN/PRESURE. PT ARRIVED TO UNIT WITH HEP GTT, HEPARIN ON STANDBY FOR ONE HOUR PER PHARMACY ORDER. PT INDEPENDENT IN BED. PT ORIENTED TO ROOM. BED IN LOWEST POSITION, CALL LIGHT IN REACH.
--- NOTE | 2023-03-22 17:19 | NUR ---
SHIFT SUMMARY PT A/OX4 AND COOPERATIVE OF CARE. PT VSS SINCE ARRIVAL TO UNIT. NO REPORT OF CHEST PAIN/PRESSURE SINCE ARRIVAL TO UNIT. PT SEEN BY LANDING SUPPORT SPECIALIST AFTER TRANSFERING TO UNIT. PLAN FOR ANGIO 03/23. ANGIO PROCEDURE CONSENT FORM IN CHART. PT TO BE NPO AFTER MIDNIGHT EXCEPT FOR MEDS.
--- NOTE | 2023-03-22 20:00 | NUR ---
ASSUMPTION OF CARE: THIS RN ASSUMED CARE OF PT AT APPROX 1900, BEDSIDE REPORT FROM JORDY SUE. PT ALERT, ORIENTED X4, CONVERSING W/ STAFF AND FAMILY AT THE BEDSIDE. PT DENIES CHEST PAIN, ALTHOUGH REPORTS OCCASIONAL LIGHT PRESSURE THAT RESOLVES. HR 70'S, SINUS ON TELE. BP STABLE, MAP >65. SPO2 >95% ON RA. HEPARIN GTT INFUSING AT 14 U/KG/HR, MANAGED BY PHARMACY & VERIFIED AT BEDSIDE W/ JORDY SUE. PT INDEPENDENTLY REPOSITIONING SELF IN BED, ABLE TO CALL STAFF FOR ASSISTANCE. ORDERS FOR NPO AT 0000 ANTICIPATING ANGIO IN AM. NO OTHER NEEDS AT THIS TIME. CALL LIGHT IN REACH, BED IN LOWEST POSITION.
[2023-03-23] VITALS (12 sets, daily range): BP systolic 105–137; BP diastolic 66–82
--- NOTE | 2023-03-23 00:29 | NUR ---
CHEST PAIN UPDATE: THIS RN CALLED TO PT'S ROOM W/ CARBON COATER MACHINE OPERATOR DUE TO PT REPORTING 5/10 SQUEEZING CHEST PAIN. PT REPORTS THAT THIS CHEST PAIN RADIATES UP TO THE LEFT SHOULDER. IV FENTANYL ADMINISTERED PER EMAR FOR PAIN W/O RELIEF. CALL PLACED TO DR. RAO REGARDING SYMPTOMS. ORDERS RECEIVED FOR SL NITRO & IMDUR X1 NOW. FIRST DOSE SL NITRO ADMINISTERED AT 0017, BP 137/81, CHEST PAIN 5/10. AT 0021 BP 118/73, CHEST PAIN 2/10. AT 0030 PT REPORTS PAIN HAS DROPPED TO 1/10. WILL ADMINISTER IMDUR PER EMAR, AWAITING PHARMACY VERIFICATION.
--- NOTE | 2023-03-23 05:19 | NUR ---
END OF SHIFT NOTE: SEE PREVIOUS NOTES REGARDING EVENTS OVERNIGHT. NO ADDITIONAL EPISODES OF CHEST PAIN OR PRESSURE FOLLOWING ADMINISTRATION OF NITRO & IMDUR PER EMAR. VSS. HEPARIN GTT INFUSING AT 16 U/KG/HR PER PHARMACY. INDEPENDENTLY REPOSITIONING AND VOIDING. NPO SINCE 0000 FOR ANGIO THIS AM. NO OTHER NEEDS AT THIS TIME, CALL LIGHT IN REACH. WILL REPORT TO ONCOMING RN.
[2023-03-23 05:35] LABS: Hematocrit 40.1 % (33.0-51.0); Hemoglobin 13.3 g/dL (11.5-16.0); Mean Corpuscular HGB 28.4 pg (26.0-34.0); Mean Corpuscular HGB Conc 33.2 g/dL (31.5-36.5); Mean Corpuscular Volume 86 fL (80-100); Mean Platelet Volume 9.9 fL (9.1-12.4); Platelet Count 255 K/mm3 (150-400); Red Blood Cell Count 4.68 M/mm3 (3.80-5.20); White Blood Cell Count 8.32 K/mm3 (4.00-11.30)
[2023-03-23 05:53] LABS: Bun/Creatinine Ratio 15.4 (12.0-20.0); Calcium, Blood 8.7 mg/dL (8.5-10.1); Creatinine, Blood 0.72 mg/dL (0.40-1.00)
--- NOTE | 2023-03-23 13:48 | NUR ---
UPDATE PT ARRIVED TO PCU FROM DIESEL TECHNOLOGY INSTRUCTOR VIA BED AT APPROX 1300. VSS. POST OF VITALS ENSUE. PT ARRIVED W/ R RADIAL SITE. SLIGHT OOZING NOTED. NO BRUISING, SITE SOFT. ARM BOARD IN PLACE. PT VERBALIZED IMPORTANCE OF NOT USING THAT ARM. CALL PLACED TO MD FELIZ, VERIFIED NO HEP GTT TO INFUSE. NS STARTED PER EMAR. PT HAD FRIEND VISIT UPON ARRIVAL BACK TO UNIT. CALL LIGHT IN REACH.
--- NOTE | 2023-03-23 18:48 | NUR ---
SHIFT SUMMARY PT A&OX4, SP02>90% ON RA. VSS. TELEMETRY SHOWS NSR, HR MOSTLY 70'S. PT TO CATHLAB TODAY, SEE PREVIOUS NOTE. TR BAND DEFLATED. NOW IN THE HOUR PERIOD WAIT BEFORE REMOVING, ENDS AT 1900. FULLY DEFLATED AT 1800. NO BRUISING, SITE SOFT. ARM BOARD IN PLACE. PT DENIES PAIN. UP TO BATHROOM TO VOID. DAUGHTER IN ROOM WITH PT. CALL LIGHT IN REACH.
--- NOTE | 2023-03-23 20:00 | NUR ---
ASSUMPTION OF CARE: THIS RN ASSUMED CARE OF PT AT APPROX 1900. BEDSIDE REPORT TAKEN FROM ARNAV SUE. PT ALERT, ORIENTED X4, CONVERSING W/ STAFF. PT DENIES CHEST PAIN/PRESSURE THIS EVENING. HR 70-80'S, SINUS ON TELE. BP STABLE, MAP >65. SPO2 >95% ON RA. R RADIAL ACCESS SITE INTACT, TR BAND REMOVED AT APPROX 1950. NO BLEEDING, BRUISING, OR HEMATOMA PRESENT, RADIAL PULSES PALPABLE. WHITE ARMBOARD ON. GI/ WNL. PT INDEPENDENTLY REPOSITIONING SELF IN BED, ABLE TO CALL STAFF FOR ASSISTANCE NEEDED. TOLERATING PO INTAKE WELL THUS FAR, CARDIAC DIET. CALL LIGHT IN REACH, BED IN LOWEST POSITION.
[2023-03-24 04:06] VITALS: BP 118/76
--- NOTE | 2023-03-24 04:59 | NUR ---
END OF SHIFT NOTE: NO ACUTE EVENTS OVERNIGHT, SEE PREVIOUS NOTE FOR FURTHER SHIFT DETAILS. PT HAS DENIED CHEST PAIN/PRESSURE T/O NOC, REPORTS FEELING "SORE" POST-ANGIO. R RADIAL SITE REMAINS INTACT, NO BLEEDING/BRUISING/HEMATOMA FORMATION. SOFT ON PALPATION. VSS. INDEPENDENT IN ROOM, CALLS APPROPRIATELY FOR ASSISTANCE NEEDED. CALL LIGHT IN REACH. WILL REPORT TO ONCOMING RN.
[2023-03-24 05:26] LABS: Bun/Creatinine Ratio 16.1 (12.0-20.0); Calcium, Blood 8.8 mg/dL (8.5-10.1); Creatinine, Blood 0.62 mg/dL (0.40-1.00); Potassium, Blood 3.7 mmol/L (3.5-5.5)
--- NOTE | 2023-03-24 13:33 | NUR ---
Discharged. Pt verbalized understanding of all discharge instructions. All personal belongings sent home with patient. No acute events this morning, VS stable at time of discharge. Pt taken to lobby via wheelchair.
== END 2023-03-24 12:37 | disposition home or self-care (01) | DRG 322 ==
LOC: ER 21:11 → ICUE 21:12 → EDBEDREQ 03-22 00:11 → EDBEDREQDT 03-22 00:11 → ICUE 03-22 01:14 → PCU 03-22 13:49
PROVIDERS: Internal Medicine; Student in an Organized Health Care Education/Training Program; ADMIT Internal Medicine
PROC: 027034Z Dilation of Coronary Artery, One Artery with Drug-eluting Intraluminal Device, Percutaneous Approach (ICD-10-PCS; principal; 2023-03-23)
PROC: B2111ZZ Fluoroscopy of Multiple Coronary Arteries using Low Osmolar Contrast (ICD-10-PCS; 2023-03-23)
PROC: 4A023N7 Measurement of Cardiac Sampling and Pressure, Left Heart, Percutaneous Approach (ICD-10-PCS; 2023-03-23)
DX: T82.855A Stenosis of coronary artery stent, initial encounter (principal); I25.110 Atherosclerotic heart disease of native coronary artery with unstable angina pectoris; E78.5 Hyperlipidemia, unspecified; F41.9 Anxiety disorder, unspecified; I10 Essential (primary) hypertension; E11.9 Type 2 diabetes mellitus without complications; J45.909 Unspecified asthma, uncomplicated; M54.9 Dorsalgia, unspecified; G89.29 Other chronic pain; Y83.8 Other surgical procedures as the cause of abnormal reaction of the patient, or of later complication, without mention of misadventure at the time of the procedure; F17.210 Nicotine dependence, cigarettes, uncomplicated; Z88.0 Allergy status to penicillin; Z88.1 Allergy status to other antibiotic agents; Z95.5 Presence of coronary angioplasty implant and graft; Z91.030 Bee allergy status; Z91.038 Other insect allergy status; Z88.5 Allergy status to narcotic agent; Z91.010 Allergy to peanuts; Z91.013 Allergy to seafood; Z79.82 Long term (current) use of aspirin; Z79.84 Long term (current) use of oral hypoglycemic drugs; Z79.899 Other long term (current) drug therapy; Z79.02 Long term (current) use of antithrombotics/antiplatelets; I25.2 Old myocardial infarction; Z98.890 Other specified postprocedural states
CPT/HCPCS: 36415; 71045; 76937; 78452; 80048; 80053; 82947; 83880; 84484; 85025; 85027; 85520; 85610; 93005; 93010; 93017; 93306; 93454; 93458; 94760; 96365; 96366; 96368; 99152; 99153; 99291-25; A9270; A9500; C1769; C1874; C1887; C1894; C9600; J0280; J1644; J1815; J2250; J2785; J3010; J3246; J7030; J7050; Q9967

== ENCOUNTER 2024-06-09 06:37 | Day surgery (SDC) | payer OTHER ==
[2024-06-09] VITALS (8 sets, daily range): BP systolic 108–152; BP diastolic 62–92
[~2024-06-09] VITALS: Ht 165.1 cm; Wt 87.5 kg
[~2024-06-09 06:37] MED LIST changes: +ALBU2.5V5 INH; +BUPR150ER PO; +FLUTICASONE-SA1 EAC1 INH; +GABA300 PO; +GLIP10 PO; +ICOSAPENT ETHYL1 GM PO; +TRAZ50 PO; +Vitamin D1000 UNI1 PO
[2024-06-09] MEDS ORDERED: Verapamil HCL 2.5 MG/ML 2ML Injection ONE (07:22)
[2024-06-09] MEDS ORDERED: Heparin Sodium 1000 Units/ML 10ML MDV ONE (07:22)
[2024-06-09] MEDS ORDERED: NS 1,000 ML IV ONE ×2 (07:23→07:55)
[2024-06-09] MEDS ORDERED: NS 250 ML IV ONE (07:23)
[2024-06-09] MEDS ORDERED: Midazolam HCl 1MG / ML 2ML Vial ONE (07:55)
[2024-06-09] MEDS ORDERED: FentaNYL Citrate 50 MCG/ML 2 ML Injection ONE (07:55)
--- NOTE | 2024-06-09 10:30 | NUR ---
PT TR BAND DEFLATED. NO BLEEDING OR HEMATOMA NOTED. VSS. NADN. PT AMBULATES TO RESTROOM AND BACK WITHOUT DIFF. PT FRIENDS AT BEDSIDE.
--- NOTE | 2024-06-09 11:10 | NUR ---
PT VERBALIZES UNDERSTANDING WRITTEN AND VERBAL INSTRUCTIONS. DENIES NEEDS OR CONERNS. PT DRESSES SELF WITHOUT DIFF. IV DC'D. CATH INTACT. PRESSURE DSG APPLIED. NO BLEEDING NOTED. PT TR BAND REMOVED. DOT DRESSING APPLIED WITH SPLINT. NO BLEEDING OR HEMATOMA NOTED. PT DC TO HOME VIA FRIENDS BY AAKASH
== END 2024-06-09 12:17 | disposition home or self-care (01) ==
LOC: MHTC 06:37
DX: I25.118 Atherosclerotic heart disease of native coronary artery with other forms of angina pectoris (principal); E78.5 Hyperlipidemia, unspecified; I21.4 Non-ST elevation (NSTEMI) myocardial infarction; J44.9 Chronic obstructive pulmonary disease, unspecified; E11.9 Type 2 diabetes mellitus without complications; E78.00 Pure hypercholesterolemia, unspecified; I25.2 Old myocardial infarction; G47.33 Obstructive sleep apnea (adult) (pediatric); Z79.82 Long term (current) use of aspirin; Z88.5 Allergy status to narcotic agent; Z88.0 Allergy status to penicillin; Z91.010 Allergy to peanuts
CPT/HCPCS: 76937; 93454; 99152; C1769; C1887; C1894; J1644; J2250; J3010; J7030; J7050; Q9967